=== PATIENT | female | born 1980 ===

== ENCOUNTER 2017-05-30 13:00 | Emergency (ER) | payer MEDICAID ==
[2017-05-30 13:05] VITALS: O2SAT 96
--- NOTE | 2017-05-30 13:42 | RAD ---
PROCEDURE: Right Hand Radiographs. HISTORY: right hand medial aspect pain after fall COMPARISON: None available. FINDINGS: BONES: Acute displaced fracture deformity involving the proximal 5th metacarpal. The remainder the visualized osseous structures appear intact. JOINTS: No dislocation. SOFT TISSUES: Soft tissue swelling. No evidence of radiopaque foreign body. OTHER FINDINGS: None. IMPRESSION: Acute mildly displaced fracture of the proximal 5th metacarpal. Associated soft tissue swelling.
--- NOTE | 2017-05-30 13:47 | C.PDOC ---
History Of Present Illness 36 y/o female presents to the ER complaining of pain in the right hand which began in the morning. Patient states that the pain began after she slipped and hit her right hand on the side of the table while getting ready for work at home in the morning. Patient states that she went to work but the pain became worse. Therefore, she decided to come to the ER. Patient denies having any other injuries. Time Seen by Provider: 05/30/17 13:05 Chief Complaint (Nursing): Finger,Hand,&Wrist History Per: Patient History/Exam Limitations: no limitations Onset/Duration Of Symptoms: Hrs Current Symptoms Are (Timing): Still Present Severity: Moderate Past Medical History Reviewed: Historical Data, Nursing Documentation, Vital Signs Vital Signs: Last Vital Signs Temp 98.9 F 05/30/17 14:22 Pulse 81 05/30/17 14:22 Resp 16 05/30/17 14:22 BP 115/81 05/30/17 14:22 Pulse Ox 96 05/30/17 14:41 - Medical History PMH: Anemia, Kidney Stones, Migraine, Chronic Kidney Disease Surgical History: Cholecystectomy Family History: States: No Known Family Hx - Social History Hx Tobacco Use: No Hx Alcohol Use: No Hx Substance Use: No - Immunization History Hx Tetanus Toxoid Vaccination: Yes Hx Influenza Vaccination: Yes Hx Pneumococcal Vaccination: No Review Of Systems Except As Marked, All Systems Reviewed And Found Negative. Musculoskeletal: Positive for: Hand Pain (right hand pain) Neurological: Negative for: Weakness, Numbness Physical Exam - Physical Exam Appears: Non-toxic, No Acute Distress, Other (mild pain) Skin: Normal Color, Warm Head: Atraumatic, Normacephalic Eye(s): bilateral: Normal Inspection, PERRL Nose: Normal Oral Mucosa: Moist Neck: Supple Chest: Symmetrical Cardiovascular: Rhythm Regular Respiratory: Normal Breath Sounds, No Accessory Muscle Use, No Rales, No Rhonchi , No Wheezing Extremity: Normal ROM (range of motion in digits intact), Tenderness ( tenderness to palpation in medial aspect of right hand and wrist), Capillary Refill (<2 seconds), No Deformity (right hand), No Swelling (right hand), Other (increased pain w/movement of right wrist) Pulses: Left Radial: Normal, Right Radial: Normal Neurological/Psych: Oriented x3, Normal Speech, Normal Cognition, Normal Motor, Normal Sensation ED Course And Treatment O2 Sat by Pulse Oximetry: 96 (RA) Pulse Ox Interpretation: Normal Progress Note: X-Ray of right hand ordered. Patient given Tylenol. Disposition - Disposition Disposition: HOME/ ROUTINE Disposition Time: 13:55 Condition: STABLE Additional Instructions: FOLLOW UP WITH HAND SURGERY WITHIN 1 WEEK USE MEDICATIONS NEEDED FOR PAIN RETURN TO ER IF SYMPTOMS WORSEN Prescriptions: Acetaminophen [Tylenol 325mg tab] 650 mg PO Q6 PRN #30 tab PRN Reason: pain/fever Acetaminophen with Codeine [Tylenol with Codeine #3 Tablet] 1 each PO Q6 PRN # 15 tablet PRN Reason: pain Instructions: Hand Fracture (ED) Forms: [facility] (Pashto) Print Language: BURMESE - POA Present On Arrival: None - Clinical Impression Clinical Impression: Fracture, metacarpal - Scribe Statement The provider has reviewed the documentation as recorded by the Yvonne Hampton Provider Attestation: All medical record entries made by the Ogibyudy were at my direction and personally dictated by me. I have reviewed the chart and agree that the record accurately reflects my personal performance of the history, physical exam, medical decision making, and the department course for this patient. I have also personally directed, reviewed, and agree with the discharge instructions and disposition.
[2017-05-30 14:24] VITALS: BP 115/81; PULSE 81; RESP 16; TEMP 98.9
== END 2017-05-30 14:24 | disposition home or self-care (01) ==
LOC: C.ER 13:00
DX: S62.396A Other fracture of fifth metacarpal bone, right hand, initial encounter for closed fracture (principal); W01.190A Fall on same level from slipping, tripping and stumbling with subsequent striking against furniture, initial encounter

== ENCOUNTER 2017-11-28 15:40 | Emergency (ER) | payer MEDICAID ==
[2017-11-28 16:07] VITALS: TEMP 98.7
--- NOTE | 2017-11-28 16:51 | C.PDOC ---
History Of Present Illness 37-year-old female, presents to the emergency department with complaints of left knee pain, sustained [place]. Patient notes pain is worse with movement and weight bearing. Denies nausea/vomiting, numbness/weakness, or any other associated symptoms/injuries. Time Seen by Provider: 11/28/17 16:10 Chief Complaint (Nursing): Lower Extremity Problem/Injury History Per: Patient History/Exam Limitations: no limitations Onset/Duration Of Symptoms: Days Current Symptoms Are (Timing): Still Present Severity: Moderate Past Medical History Reviewed: Historical Data, Nursing Documentation, Vital Signs Vital Signs: Last Vital Signs Temp 98.7 F 11/28/17 16:05 Pulse 70 11/28/17 17:01 Resp 19 11/28/17 17:01 BP 112/78 11/28/17 17:01 Pulse Ox 100 11/28/17 17:01 - Medical History PMH: Anemia, Kidney Stones, Migraine, Chronic Kidney Disease Surgical History: Cholecystectomy Family History: States: No Known Family Hx - Social History Hx Tobacco Use: No Hx Alcohol Use: No Hx Substance Use: No - Immunization History Hx Tetanus Toxoid Vaccination: Yes Hx Influenza Vaccination: Yes Hx Pneumococcal Vaccination: No Review Of Systems Constitutional: Negative for: Fever Gastrointestinal: Negative for: Nausea, Vomiting Musculoskeletal: Positive for: Other (knee pain) Neurological: Negative for: Weakness, Numbness Physical Exam - Physical Exam Appears: Non-toxic, No Acute Distress Skin: Normal Color, Warm, Dry, No Rash Head: Atraumatic Eye(s): bilateral: Normal Inspection Nose: Normal Oral Mucosa: Moist Lips: Normal Appearing Neck: Normal ROM Respiratory: No Accessory Muscle Use Extremity: Tenderness (left anterior knee), No Deformity, No Swelling Neurological/Psych: Oriented x3, Normal Speech ED Course And Treatment O2 Sat by Pulse Oximetry: 97 (RA) Pulse Ox Interpretation: Normal Medical Decision Making Medical Decision Making: knee xray - prelminary reading of knee xray demonstrates no fx. brunilda wrap and follow up with ortho in 2 days Disposition Counseled Patient/Family Regarding: Studies Performed, Diagnosis - Disposition Referrals: Ricki Andrade MD [Staff Provider] - Disposition: HOME/ ROUTINE Disposition Time: 16:49 Condition: STABLE Additional Instructions: rest, ice follow up with Dr. Andrade in 2 days call to make an appointment take medication as needed for pain return to ER if symptoms worsens or progress Prescriptions: Naproxen [Naprosyn] 500 mg PO BID PRN #16 tab PRN Reason: Pain, Moderate (4-7) Instructions: Knee Sprain (DC) Forms: [facility] (Malagasy), General Discharge Instructions - Clinical Impression Clinical Impression: Knee sprain - Scribe Statement The provider has reviewed the documentation as recorded by the Scribe (Joshua Corrales) Provider Attestation: All medical record entries made by the Scribe were at my direction and personally dictated by me. I have reviewed the chart and agree that the record accurately reflects my personal performance of the history, physical exam, medical decision making, and the department course for this patient. I have also personally directed, reviewed, and agree with the discharge instructions and disposition.
--- NOTE | 2017-11-28 16:59 | RAD ---
Date of service: 11/28/2017 PROCEDURE: Left Knee Radiographs. HISTORY: Pain. COMPARISON: None. FINDINGS: BONES: Normal. No fracture. JOINTS: Normal. No osteoarthritis. JOINT EFFUSION: None. OTHER FINDINGS: None. IMPRESSION: Normal radiographs of the left knee.
[2017-11-28 17:02] VITALS: BP 112/78; PULSE 70; RESP 19
[2017-11-28 17:22] VITALS: O2SAT 97
== END 2017-11-28 17:04 | disposition home or self-care (01) ==
LOC: C.ER 15:40
DX: S83.92XA Sprain of unspecified site of left knee, initial encounter (principal); X50.9XXA Other and unspecified overexertion or strenuous movements or postures, initial encounter; Y92.832 Beach as the place of occurrence of the external cause